=== PATIENT | female | born 1940 | race Caucasian/White ===

== ENCOUNTER 2018-02-22 16:19 | Inpatient (IN) | payer MEDICARE, BC ==
[2018-02-22] MEDS ORDERED: Sodium Chloride 0.9% 1,000 ML IV STA (16:47)
--- NOTE | 2018-02-22 17:05 | RAD ---
HISTORY: Fever COMPARISON: No prior. FINDINGS: LUNGS: No active pulmonary disease. PLEURA: No significant pleural effusion identified, no pneumothorax apparent. CARDIOVASCULAR: Atherosclerotic aortic calcifications. Cardiomediastinal silhouette within normal limits. OSSEOUS STRUCTURES: Degenerative changes. VISUALIZED UPPER ABDOMEN: Right upper quadrant surgical clips. OTHER FINDINGS: None. IMPRESSION: No active disease.
[2018-02-22 17:17] LABS: BASO # 0.1 K/uL (0.0-0.2); BASO % 0.7 % (0.0-2.0); EOS # 0.1 K/uL (0.0-0.7); EOS % 0.4 % (0.0-4.0); HEMOGLOBIN 11.5 g/dL (12.0-16.0); LYMPH # 1.3 K/uL (1.0-4.3); LYMPH % 10.3 % (20.0-40.0); MEAN CELL VOLUME 89.2 fl (81.0-99.0); MEAN CORPUSCULAR HEMOGLOBIN 30.1 pg (27.0-31.0); MEAN CORPUSCULAR HGB CONC 33.8 g/dL (33.0-37.0); MEAN PLATELET VOLUME 6.8 fl (7.2-11.7); MONO # 1.6 K/uL (0.0-0.8); MONO % 12.6 % (0.0-10.0); NEUT # 9.6 K/uL (1.8-7.0); RBC 3.81 Mil/uL (3.80-5.20); RED CELL DISTRIBUTION WIDTH 14.1 % (11.5-14.5)
[2018-02-22 17:19] LABS: VENOUS BLOOD GAS BASE EXCESS 3.9 mmol/L (0.0-2.0); VENOUS BLOOD GAS PCO2 51 mmHg (40-60); VENOUS BLOOD GAS PO2 22 mm/Hg (30-55); VENOUS BLOOD PH 7.38 (7.32-7.43)
[2018-02-22 17:24] LABS: WHITE BLOOD COUNT 12.6 K/uL (4.8-10.8)
--- NOTE | 2018-02-22 17:27 | ED PDOC ---
HPI: Back Time Seen by Provider: 02/22/18 16:41 Chief Complaint (Nursing): Abdominal Pain Chief Complaint (Provider): Flank pain History Per: Patient, Family Additional Complaint(s): Pt reports L flank pain X 2 days, radiates to L abdomen, associated with chills. Denies nausea, vomiting, dysuria, hematuria, cough, CP, SOB. Past Medical History Reviewed: Nursing Documentation, Vital Signs Vital Signs: Last Vital Signs Temp 102.0 F H 02/22/18 16:24 Pulse 98 H 02/22/18 16:24 Resp 18 02/22/18 16:24 BP 167/101 H 02/22/18 16:24 Pulse Ox 99 02/22/18 16:24 - Medical History PMH: HTN Other PMH: Renal cyst - Surgical History Surgical History: Appendectomy, Cholecystectomy - Family History Family History: States: Unknown Family Hx - Social History Current smoker - smoking cessation education provided: No Alcohol: None - Home Medications Home Medications: Ambulatory Orders Medication Instructions Recorded Aspirin [Ecotrin] 81 mg PO DAILY 02/22/18 Cyclobenzaprine [Flexeril] 5 mg PO DAILY 02/22/18 Metformin HCl [Glucophage Xr] 750 mg PO DAILY 02/22/18 SITagliptin [Januvia] 100 mg PO DAILY 02/22/18 Valsartan [Diovan] 80 mg PO DAILY 02/22/18 [id number] CD [Cardizem CD] 180 mg PO DAILY 02/22/18 - Allergies Allergies/Adverse Reactions: Allergies Allergy/AdvReac Type Severity Reaction Status Date / Time ciprofloxacin [From Cipro] Allergy RASH Verified 02/22/18 16:24 Review of Systems Constitutional: Positive for: Chills Cardiovascular: Negative for: Chest Pain, Palpitations Respiratory: Positive for: Cough, Shortness of Breath Gastrointestinal: Positive for: Abdominal Pain. Negative for: Nausea, Vomiting , Diarrhea Genitourinary Female: Negative for: Dysuria, Hematuria, Vaginal Discharge, Vaginal Bleeding Musculoskeletal: Positive for: Back Pain Skin: Negative for: Rash, Lesions Neurological: Negative for: Headache, Dizziness Physical Exam - Reviewed Nursing Documentation Reviewed: Yes Vital Signs Reviewed: Yes - Physical Exam Appears: Positive for: Well, No Acute Distress Skin: Positive for: Normal Color, Warm, Dry Eye Exam: Positive for: Normal appearance, EOMI, PERRL Neck: Positive for: Normal, Painless ROM, Supple Cardiovascular/Chest: Positive for: Regular Rate, Rhythm Respiratory: Positive for: Normal Breath Sounds. Negative for: Rales, Rhonchi, Wheezing Gastrointestinal/Abdominal: Positive for: Bowel Sounds, Soft, Tenderness (LLQ). Negative for: Guarding, Rebound Back: Positive for: Normal Inspection, L CVA Tenderness Neurologic/Psych: Positive for: Alert, Oriented - Laboratory Results Result Diagrams: 02/22/18 17:10 - ECG O2 Sat by Pulse Oximetry: 99 Medical Decision Making Medical Decision Makin y female with fever and flank pain. - labs - EKG - CXR - CT abd/pelvis - IVF - Tylenol Disposition - Disposition
[2018-02-22 17:28] LABS: INR 1.1 (0.9-1.2); PARTIAL THROMBOPLASTIN TIME 32.4 Seconds (25.6-37.1)
[2018-02-22 17:31] LABS: ALBUMIN 3.9 g/dL (3.5-5.0); ALT/SGPT 33 U/L (9-52); AST/SGOT 22 U/L (14-36); BLOOD UREA NITROGEN 19 mg/dl (7-17); CALCIUM 9.6 mg/dL (8.4-10.2); GFR AFRICAN-AMERICAN > 60; GFR NON-AFRICAN AMERICAN > 60
[2018-02-22 18:27] LABS: SQUAMOUS EPITHIAL < 1 /hpf (0-5); URINE BILIRUBIN NEGATIVE (NEGATIVE); URINE BLOOD SMALL (NEGATIVE); URINE CLARITY CLEAR (Clear); URINE COLOR YELLOW (YELLOW); URINE GLUCOSE (UA) NEG (Normal); URINE LEUKOCYTE ESTERASE TRACE Leu/uL (Negative); URINE PROTEIN 30 mg/dL (NEGATIVE); URINE UROBILINOGEN 0.2-1.0 mg/dL (0.2-1.0)
--- NOTE | 2018-02-22 19:21 | ED PDOC ---
- Laboratory Results Result Diagrams: 02/23/18 05:30 02/23/18 05:30 - ECG O2 Sat by Pulse Oximetry: 99 Medical Decision Making Medical Decision Making: Time: 19:00 Patient signed over to me by Dr. Lin pending CT abdomen, reevaluation, and final disposition. Time: 21:54 CT ABDOMEN AND PELVIS: FINDINGS: Limitations: Lack of intravenous contrast. Motion artifact - mild. Lung bases: Mild atelectasis/scarring with volume loss. Mediastinum: Small hiatal hernia. ABDOMEN: Liver: Unremarkable. Gallbladder and bile ducts: Cholecystectomy. Mild prominence of common bile duct. Pancreas: Unremarkable. No ductal dilation. Spleen: No splenomegaly. Adrenals: No mass. Kidneys and ureters: Minimal to mild stranding about kidneys, nonspecific. Mild atrophy of kidneys. Probable 7.5 x 6.2 x 7.1 cm LEFT renal cyst within calcified septations. 1.2 x 1.6 x 1.4 cm lesion within LEFT kidney, indeterminate by CT criteria. No renal calculi. No hydronephrosis. Stomach and bowel: Scattered diverticula within colon. No associated inflammatory stranding. No definite mural thickening. No obstruction. Appendix: No findings to suggest acute appendicitis. PELVIS: Bladder: Collapsed bladder, limiting evaluation. No stones. Reproductive: Hysterectomy. ABDOMEN and PELVIS: Intraperitoneal space: No significant fluid collection. No free air. Bones/joints: Mild degenerative changes of spine. No acute fracture. Soft tissues: Unremarkable. Vasculature: Mild atherosclerotic disease. No aneurysm. Lymph nodes: No pathologically enlarged lymph nodes. IMPRESSION: 1. Perinephric stranding, nonspecific. Correlate with urinalysis to exclude infection. 2. Left kidney lesion, indeterminate. Recommend nonemergent ultrasound or MRI. 3. Diverticulosis without definite CT evidence of diverticulitis. 4. Incidental/non-acute findings are described above. Time: 22:00 Patient will be admitted to the hospital for UTI and sepsis. Will place call to Dr. Lopez of Medical Services. Scribe Attestation: Documented by Rashad Childers, acting as a scribe for Helene Christopher MD. Provider Scribe Attestation: All medical record entries made by the Scribe were at my direction and personally dictated by me. I have reviewed the chart and agree that the record accurately reflects my personal performance of the history, physical exam, medical decision making, and the department course for this patient. I have also personally directed, reviewed, and agree with the discharge instructions and disposition. Disposition Discussed With : Cesar Lopez Doctor Will See Patient In The: Hospital Counseled Patient/Family Regarding: Studies Performed, Diagnosis - Clinical Impression Clinical Impression: UTI (urinary tract infection), Sepsis - POA Present On Arrival: None - Disposition Disposition: Admitted as In-Patient Disposition Time: 22:16 Condition: GOOD
[2018-02-22] MEDS ORDERED: cefTRIAXone (Rocephin) 1 gm Inj ONE (19:27)
--- NOTE | 2018-02-22 21:55 | CT ---
EXAM: CT Abdomen and Pelvis Without Intravenous Contrast CLINICAL HISTORY: 77 years old, female; Pain; Other: Lt fank pain; Prior surgery; Surgery date: 6+ months; Surgery type: Drainage of kidney; Additional info: L flank pain, fever TECHNIQUE: Axial computed tomography images of the abdomen and pelvis without intravenous contrast. All CT scans at this facility use one or more dose reduction techniques, viz.: automated exposure control; ma/kV adjustment per patient size (including targeted exams where dose is matched to indication; i.e. head); or iterative reconstruction technique. Coronal and sagittal reformatted images were created and reviewed. COMPARISON: No relevant prior studies available. FINDINGS: Limitations: Lack of intravenous contrast. Motion artifact - mild. Lung bases: Mild atelectasis/scarring with volume loss. Mediastinum: Small hiatal hernia. ABDOMEN: Liver: Unremarkable. Gallbladder and bile ducts: Cholecystectomy. Mild prominence of common bile duct. Pancreas: Unremarkable. No ductal dilation. Spleen: No splenomegaly. Adrenals: No mass. Kidneys and ureters: Minimal to mild stranding about kidneys, nonspecific. Mild atrophy of kidneys. Probable 7.5 x 6.2 x 7.1 cm LEFT renal cyst within calcified septations. 1.2 x 1.6 x 1.4 cm lesion within LEFT kidney, indeterminate by CT criteria. No renal calculi. No hydronephrosis. Stomach and bowel: Scattered diverticula within colon. No associated inflammatory stranding. No definite mural thickening. No obstruction. Appendix: No findings to suggest acute appendicitis. PELVIS: Bladder: Collapsed bladder, limiting evaluation. No stones. Reproductive: Hysterectomy. ABDOMEN and PELVIS: Intraperitoneal space: No significant fluid collection. No free air. Bones/joints: Mild degenerative changes of spine. No acute fracture. Soft tissues: Unremarkable. Vasculature: Mild atherosclerotic disease. No aneurysm. Lymph nodes: No pathologically enlarged lymph nodes. IMPRESSION: 1. Perinephric stranding, nonspecific. Correlate with urinalysis to exclude infection. 2. Left kidney lesion, indeterminate. Recommend nonemergent ultrasound or MRI. 3. Diverticulosis without definite CT evidence of diverticulitis. 4. Incidental/non-acute findings are described above.
[2018-02-22] MEDS: Dextrose 5%/0.45% NS 1,000 ML IV SCH (23:52)
[2018-02-23 07:15] LABS: HEMOGLOBIN 10.5 g/dL (12.0-16.0); MEAN CORPUSCULAR HEMOGLOBIN 30.3 pg (27.0-31.0); MEAN CORPUSCULAR HGB CONC 33.6 g/dL (33.0-37.0); RBC 3.46 Mil/uL (3.80-5.20); WHITE BLOOD COUNT 8.1 K/uL (4.8-10.8)
[2018-02-23 07:36] LABS: LDL CHOLESTEROL 58 mg/dL (0-129)
[2018-02-23 07:56] LABS: ALB/GLOB RATIO 0.9 (1.0-2.1); ALT/SGPT 59 U/L (9-52); AST/SGOT 65 U/L (14-36); BLOOD UREA NITROGEN 12 mg/dl (7-17); CALCIUM 8.7 mg/dL (8.4-10.2); GFR AFRICAN-AMERICAN > 60; GFR NON-AFRICAN AMERICAN > 60; HDL CHOLESTEROL 31 MG/DL (30-70)
[2018-02-23 08:09] VITALS: RESP 20
[2018-02-23] MEDS: diltiaZEM 180 mg/24 Hours CD Cap PO SCH (08:42)
[2018-02-23] MEDS ORDERED: METFORMIN HCL 750 MG PO SCH (09:00)
--- NOTE | 2018-02-23 10:36 | CARD ---
APPROVED REPORT EKG Measurement Heart [id number] <Conclusion> Normal sinus rhythm Normal ECG
[2018-02-23] MEDS: Dextrose 5%/0.45% NS 1,000 ML IV SCH (13:53)
--- NOTE | 2018-02-23 23:50 | CP.PCM.HP ---
History of Present Illness - History of Present Illness History of Present Illness: This is a 77 y/o female admitted for fever back pain and dysuria. She had low grade fever. and noted elevated WBC, She claism that she started having progressive pain on the left flank for the past few days. She has a hx of complex renal cyst and claims that she had an aspiration of the cyst which revealed benign results. Medical Hx HTn DM 2 complex renal cyst Present on Admission - Present on Admission Any Indicators Present on Admission: No History of DVT/PE: No History of Uncontrolled Diabetes: No Urinary Catheter: No Decubitus Ulcer Present: No Review of Systems - Genitourinary Genitourinary: Flank Pain Past Patient History - Past Social History Smoking Status: Never Smoked - CARDIAC Hx Cardiac Disorders: Yes Hx Hypertension: Yes - NEUROLOGICAL Hx Neurological Disorder: Yes - RENAL Other/Comment: renal cyst - ENDOCRINE/METABOLIC Hx Endocrine Disorders: Yes (DM) Hx Diabetes Mellitus Type 2: Yes - MUSCULOSKELETAL/RHEUMATOLOGICAL Hx Falls: No - PSYCHIATRIC Hx Substance Use: No - SURGICAL HISTORY Hx Appendectomy: Yes Hx Cholecystectomy: Yes Hx Hysterectomy: Yes - ANESTHESIA Hx Anesthesia: Yes Hx Anesthesia Reactions: No Has any member of the family had a problem w/ anesthesia?: No Meds Allergies/Adverse Reactions: Allergies Allergy/AdvReac Type Severity Reaction Status Date / Time ciprofloxacin [From Cipro] Allergy RASH Verified 02/22/18 16:24 Physical Exam - Head Exam Head Exam: NORMAL INSPECTION - Eye Exam Eye Exam: Normal appearance - ENT Exam ENT Exam: Mucous Membranes Moist - Respiratory Exam Respiratory Exam: Clear to Auscultation Bilateral - GI/Abdominal Exam GI & Abdominal Exam: Normal Bowel Sounds - Neurological Exam Neurological exam: CN II-XII Intact - Psychiatric Exam Psychiatric exam: Normal Mood Results - Vital Signs Recent Vital Signs: Last Vital Signs Temp 98.5 F 02/23/18 16:11 Pulse 74 02/23/18 16:11 Resp 20 02/23/18 16:11 BP 122/64 02/23/18 16:11 Pulse Ox 95 02/23/18 16:11 - Labs Result Diagrams: 02/23/18 05:30 02/23/18 05:30 Labs: Laboratory Results - last 24 hr 02/23/18 02/23/18 02/23/18 05:09 05:30 05:30 WBC 8.1 RBC 3.46 L Hgb 10.5 L Hct 31.1 L MCV 90.0 MCH 30.3 MCHC 33.6 RDW 14.0 Plt Count 304 Sodium 147 Potassium 3.8 Chloride 109 H Carbon Dioxide 23 Anion Gap 19 BUN 12 Creatinine 0.8 Est GFR ( Amer) > 60 Est GFR (Non-Af Amer) > 60 POC Glucose (mg/dL) 100 Random Glucose 113 H Calcium 8.7 Total Bilirubin 0.6 AST 65 H D ALT 59 H D Alkaline Phosphatase 98 Total Protein 6.5 Albumin 3.0 L D Globulin 3.4 Albumin/Globulin Ratio 0.9 L Triglycerides 98 Cholesterol 133 LDL Cholesterol Direct 58 HDL Cholesterol 31 02/23/18 02/23/18 02/23/18 11:16 15:48 22:02 WBC RBC Hgb Hct MCV MCH MCHC RDW Plt Count Sodium Potassium Chloride Carbon Dioxide Anion Gap BUN Creatinine Est GFR ( Amer) Est GFR (Non-Af Amer) POC Glucose (mg/dL) 107 102 110 Random Glucose Calcium Total Bilirubin AST ALT Alkaline Phosphatase Total Protein Albumin Globulin Albumin/Globulin Ratio Triglycerides Cholesterol LDL Cholesterol Direct HDL Cholesterol Assessment & Plan (1) Abdominal pain Status: Acute (2) Renal cyst Status: Acute (3) Hypertension Status: Acute (4) Diabetes mellitus type 2 in nonobese Status: Acute (5) Renal mass of unknown nature Status: Acute - Assessment and Plan (Free Text) Plan: Iv antibiotics pain meds reviewed CT scan results cont meds
[2018-02-24 08:28] VITALS: BP 142/83; PULSE 62; TEMP 98.1
[2018-02-24] MEDS: diltiaZEM 180 mg/24 Hours CD Cap PO SCH (08:38)
--- NOTE | 2018-02-24 10:53 | CP.PCM.DIS ---
Provider - Provider Date of Admission: 02/22/18 22:16 Attending physician: Cesar Lopez MD Time Spent in preparation of Discharge (in minutes): 30 Diagnosis - Discharge Diagnosis (1) Abdominal pain Status: Acute (2) Renal cyst Status: Acute (3) Hypertension Status: Acute (4) Diabetes mellitus type 2 in nonobese Status: Acute (5) Renal mass of unknown nature Status: Acute Hospital Course - Lab Results Lab Results: Micro Results 02/22/18 17:39 Urine Urine Culture - Final <10,000 CFU/ML. MULTIPLE SPECIES. PROBABLE CONTAMINATION. 02/22/18 17:00 Blood Blood Culture - Preliminary NO GROWTH AFTER 24 HOURS Most Recent Lab Values WBC 8.1 K/uL (4.8-10.8) 02/23/18 05:30 RBC 3.46 Mil/uL (3.80-5.20) L 02/23/18 05:30 Hgb 10.5 g/dL (12.0-16.0) L 02/23/18 05:30 Hct 31.1 % (34.0-47.0) L 02/23/18 05:30 MCV 90.0 fl (81.0-99.0) 02/23/18 05:30 MCH 30.3 pg (27.0-31.0) 02/23/18 05:30 MCHC 33.6 g/dL (33.0-37.0) 02/23/18 05:30 RDW 14.0 % (11.5-14.5) 02/23/18 05:30 Plt Count 304 K/uL (130-400) 02/23/18 05:30 MPV 6.8 fl (7.2-11.7) L 02/22/18 17:10 Neut % (Auto) 76.0 % (50.0-75.0) H 02/22/18 17:10 Lymph % (Auto) 10.3 % (20.0-40.0) L 02/22/18 17:10 Hayes % (Auto) 12.6 % (0.0-10.0) H 02/22/18 17:10 Eos % (Auto) 0.4 % (0.0-4.0) 02/22/18 17:10 Baso % (Auto) 0.7 % (0.0-2.0) 02/22/18 17:10 Neut # (Auto) 9.6 K/uL (1.8-7.0) H 02/22/18 17:10 Lymph # (Auto) 1.3 K/uL (1.0-4.3) 02/22/18 17:10 Hayes # (Auto) 1.6 K/uL (0.0-0.8) H 02/22/18 17:10 Eos # (Auto) 0.1 K/uL (0.0-0.7) 02/22/18 17:10 Baso # (Auto) 0.1 K/uL (0.0-0.2) 02/22/18 17:10 PT 12.0 Seconds (9.8-13.1) 02/22/18 17:10 INR 1.1 (0.9-1.2) 02/22/18 17:10 APTT 32.4 Seconds (25.6-37.1) 02/22/18 17:10 pO2 22 mm/Hg (30-55) L 02/22/18 17:16 VBG pH 7.38 (7.32-7.43) 02/22/18 17:16 VBG pCO2 51 mmHg (40-60) 02/22/18 17:16 VBG HCO3 26.3 mmol/L 02/22/18 17:16 VBG Total CO2 31.8 mmol/L (22-28) H 02/22/18 17:16 VBG O2 Sat (Calc) 23.9 % (40-65) L 02/22/18 17:16 VBG Base Excess 3.9 mmol/L (0.0-2.0) H 02/22/18 17:16 VBG Potassium 3.8 mmol/L (3.6-5.2) 02/22/18 17:16 Sodium 139.0 mmol/L (132-148) 02/22/18 17:16 Chloride 104.0 mmol/L (98-107) 02/22/18 17:16 Glucose 109 mg/dL (65-105) H 02/22/18 17:16 Lactate 0.9 mmol/L (0.7-2.1) 02/22/18 17:16 FiO2 21.0 % 02/22/18 17:16 Sodium 147 mmol/l (132-148) 02/23/18 05:30 Potassium 3.8 MMOL/L (3.6-5.0) 02/23/18 05:30 Chloride 109 mmol/L (98-107) H 02/23/18 05:30 Carbon Dioxide 23 mmol/L (22-30) 02/23/18 05:30 Anion Gap 19 (10-20) 02/23/18 05:30 BUN 12 mg/dl (7-17) 02/23/18 05:30 Creatinine 0.8 mg/dl (0.7-1.2) 02/23/18 05:30 Est GFR ( Amer) > 60 02/23/18 05:30 Est GFR (Non-Af Amer) > 60 02/23/18 05:30 POC Glucose (mg/dL) 104 mg/dL (65-110) 02/24/18 05:16 Random Glucose 113 mg/dL (65-105) H 02/23/18 05:30 Hemoglobin A1c 6.2 % (4.2-6.5) 02/23/18 05:30 Calcium 8.7 mg/dL (8.4-10.2) 02/23/18 05:30 Total Bilirubin 0.6 mg/dl (0.2-1.3) 02/23/18 05:30 AST 65 U/L (14-36) H D 02/23/18 05:30 ALT 59 U/L (9-52) H D 02/23/18 05:30 Alkaline Phosphatase 98 U/L (38-126) 02/23/18 05:30 Total Protein 6.5 G/DL (6.3-8.2) 02/23/18 05:30 Albumin 3.0 g/dL (3.5-5.0) L D 02/23/18 05:30 Globulin 3.4 gm/dL (2.2-3.9) 02/23/18 05:30 Albumin/Globulin Ratio 0.9 (1.0-2.1) L 02/23/18 05:30 Triglycerides 98 mg/DL (0-149) 02/23/18 05:30 Cholesterol 133 mg/dL (0-199) 02/23/18 05:30 LDL Cholesterol Direct 58 mg/dL (0-129) 02/23/18 05:30 HDL Cholesterol 31 MG/DL (30-70) 02/23/18 05:30 Venous Blood Potassium 3.8 mmol/L (3.6-5.2) 02/22/18 17:16 Urine Color Yellow (YELLOW) 02/22/18 17:39 Urine Clarity Clear (Clear) 02/22/18 17:39 Urine pH 6.0 (5.0-8.0) 02/22/18 17:39 Ur Specific [place] 1.010 (1.003-1.030) 02/22/18 17:39 Urine Protein 30 mg/dL (NEGATIVE) 02/22/18 17:39 Urine Glucose (UA) Neg mg/dL (Normal) 02/22/18 17:39 Urine Ketones Negative mg/dL (NEGATIVE) 02/22/18 17:39 Urine Blood Small (NEGATIVE) 02/22/18 17:39 Urine Nitrate Negative (NEGATIVE) 02/22/18 17:39 Urine Bilirubin Negative (NEGATIVE) 02/22/18 17:39 Urine Urobilinogen 0.2-1.0 mg/dL (0.2-1.0) 02/22/18 17:39 Ur Leukocyte Esterase Trace [place]/uL (Negative) 02/22/18 17:39 Urine RBC (Auto) 2 /hpf (0-3) 02/22/18 17:39 Urine Microscopic WBC 8 /hpf (0-5) H 02/22/18 17:39 Ur Squamous Epith Cells < 1 /hpf (0-5) 02/22/18 17:39 - Hospital Course Hospital Course: This is a 77 y/o female admitted for left flank pain and UT> She presented with fever and elevated WBC, She was started on Rocephin IV and responded well. urine c and S was negative, CT scan showed a complex cyst on the left kidney and a renal mass of unknown etiology. She did very well and was discharged in stable condition and advised follow up with her Urologist re renal mass and cyst. She was discharged on bactrim DS BID x 7 days and Ibuprofen She was advised to continue all her home meds. Discharge Exam - Head Exam Head Exam: NORMAL INSPECTION - Eye Exam Eye Exam: Normal appearance - Respiratory Exam Respiratory Exam: NORMAL BREATHING PATTERN - Cardiovascular Exam Cardiovascular Exam: REGULAR RHYTHM - GI/Abdominal Exam GI & Abdominal Exam: Normal Bowel Sounds - Neurological Exam Neurological exam: CN II-XII Intact, Oriented x3 Discharge Plan - Follow Up Plan Condition: GOOD Disposition: HOME/ ROUTINE Additional Instructions: advised follow up with Urologist Copy of CT scan of the abd was given to patient.
[2018-02-24 12:24] VITALS: O2SAT 99
--- NOTE | 2018-02-24 15:26 | PQF GENQUE ---
Dr. Lopez, ER MD documented the following information with no mention of this diagnosis in your documentation. Please indicate in your next progress note and/or discharge summary your agreement with admissions consultant or provide clarification that this diagnosis is not a current condition. Diagnosis: Sepsis Location: ER record Please clarify if this was an active condition(s) that resolved prior to discharge or this condition(s) was ruled out. Temp.: 102.0->98.6->98.6 Pulse;98->71->71 WBC:12.6-.8.1 left shift ER:Pt reports L flank pain X 2 days, radiates to L abdomen, associated with chills Impression: UTI, Sepsis H and P: admitted for fever back pain and dysuria. She had low grade fever. and noted elevated WBC, She claims that she started having progressive pain on the left flank for the past few days. She has a hx of complex renal cyst and claims that she had an aspiration of the cyst which revealed benign results Assessment Plan : (1) Abdominal pain Status: Acute (2) Renal cyst Status: Acute (3) Hypertension Status: Acute (4) Diabetes mellitus type 2 in nonobese Status: Acute (5) Renal mass of unknown nature Status: Acute D/C Summary: admitted for left flank pain and UT> She presented with fever and elevated WBC, She was started on Rocephin IV and responded well. urine c and S was negative, CT scan showed a complex cyst on the left kidney and a renal mass of unknown etiology. advised follow up with her Urologist re renal mass and cyst. Please clarify if this was an active condition(s) that resolved prior to discharge or this condition(s) was ruled out. This form is a permanent part of the medical record Clarification of your documentation is requested to better reflect the severity of illness and intensity of treatment of your patient. Indicators present [] Specify: [] [] Specify: [] [] Specify: [] [] Specify: [] Location in the medical record that reflects the above clinical findings: [] Treatment Provided: [] PHYSICIAN'S RESPONSE Based on your medical judgment of the clinical indicators outlined above please clarify the following: [] Practitioner response [] If unable to determine, please check the box, sign and date. Present On Admission (POA) Indicator: [] Present at the time of admission [] Not present at the time of admission [] Clinically Undetermined In responding to this query, please exercise your independent professional judgment. The fact that a question is asked does not imply that any particular answer is desired or expected. Thank you for your clarification on this documentation. If you have any questions please call. * Thank you, Felicia Easton RN ext. #[phone] MTDD
== END 2018-02-24 12:20 | disposition home or self-care (01) | DRG 864 ==
LOC: H.ER 16:19 → H.ERHOLD 22:16 → H.MEDSURG1 23:13
PROVIDERS: ADMIT Family Medicine; ATTEND Family Medicine
DX: R50.9 Fever, unspecified (principal); D72.829 Elevated white blood cell count, unspecified; N28.1 Cyst of kidney, acquired; N28.89 Other specified disorders of kidney and ureter; I10 Essential (primary) hypertension; E11.9 Type 2 diabetes mellitus without complications; Z88.3 Allergy status to other anti-infective agents

== ENCOUNTER 2019-02-24 20:02 | Inpatient (IN) | payer BC, MEDICARE ==
[2019-02-24] MEDS ORDERED: Sodium Chloride 0.9% 1,000 ML IV STA ×2 (21:13→21:24)
[2019-02-24 21:48] LABS: BASO % 0.7 % (0.0-2.0); EOS # 0.2 K/uL (0.0-0.7); HEMOGLOBIN 11.9 g/dL (12.0-16.0); LYMPH # 2.1 K/uL (1.0-4.3); LYMPH % 32.3 % (20.0-40.0); MEAN CELL VOLUME 90.7 fl (81.0-99.0); MEAN CORPUSCULAR HEMOGLOBIN 30.7 pg (27.0-31.0); MEAN CORPUSCULAR HGB CONC 33.9 g/dL (33.0-37.0); MONO # 0.8 K/uL (0.0-0.8); MONO % 12.3 % (0.0-10.0); NEUT # 3.4 K/uL (1.8-7.0); NEUT % 51.7 % (50.0-75.0); NRBC % 0.1 % (0.0-0.0); RBC 3.88 Mil/uL (3.80-5.20); RED CELL DISTRIBUTION WIDTH 13.8 % (11.5-14.5); WHITE BLOOD COUNT 6.7 K/uL (4.8-10.8)
[2019-02-24 21:56] LABS: INR 0.9; PROTHROMBIN TIME 10.4 Seconds (9.8-13.1)
[2019-02-24 21:58] LABS: PARTIAL THROMBOPLASTIN TIME 36.2 Seconds (25.6-37.1)
[2019-02-24 21:59] LABS: ALB/GLOB RATIO 1.3 (1.0-2.1); ALBUMIN 4.2 g/dL (3.5-5.0); ALT/SGPT 23 U/L (9-52); AST/SGOT 23 U/L (14-36); BLOOD UREA NITROGEN 23 mg/dl (7-17); CALCIUM 9.3 mg/dL (8.4-10.2); GFR NON-AFRICAN AMERICAN 54
[2019-02-24 22:24] LABS: URINE BACTERIA FEW (<OCC); URINE BILIRUBIN NEGATIVE (NEGATIVE); URINE BLOOD LARGE (NEGATIVE); URINE CLARITY SLIGHTY-CLOUDY (Clear); URINE COLOR RED (YELLOW); URINE GLUCOSE (UA) NEG (NEGATIVE); URINE LEUKOCYTE ESTERASE TRACE Leu/uL (Negative); URINE PROTEIN 100 mg/dL (NEGATIVE); URINE UROBILINOGEN 0.2-1.0 mg/dL (0.2-1.0)
[2019-02-24] MEDS ORDERED: Iohexol 300 100 ML IJ ONE (22:55)
--- NOTE | 2019-02-24 22:58 | ED PDOC ---
HPI: Abdomen Time Seen by Provider: 02/24/19 21:12 Chief Complaint (Nursing): GI Problem Chief Complaint (Provider): GI Problem History Per: Patient History/Exam Limitations: no limitations Onset/Duration Of Symptoms: Days (x 2) Location Of Pain/Discomfort: Diffuse Quality Of Discomfort: "Pain" Associated Symptoms: Other (blood in stool) Additional Complaint(s): 78 year old female with a history of DM, HTN, dyslipidemia, and diverticular disease presents to the ED for evaluation of rectal bleeding for 2 days. Patient reports a mild amount of blood from rectum, both with bowel movements and otherwise. Today, patient states bleeding became heavier with clots and developed mild abdominal pain which is worse on the left side. Denies dizziness, fever, nausea and vomiting. PMD: Dr. Castro Abnormal Vaginal Bleeding: No Past Medical History Reviewed: Historical Data, Nursing Documentation, Vital Signs Vital Signs: Last Vital Signs Temp 98.5 F 02/24/19 20:43 Pulse 72 02/24/19 20:43 Resp 18 02/24/19 20:43 BP 169/95 H 02/24/19 20:43 Pulse Ox 98 02/24/19 20:43 - Medical History PMH: Diabetes, Diverticulitis, HTN, Hyperlipidemia - Surgical History Surgical History: Appendectomy, Cholecystectomy, Other surgeries: hysterectomy - Family History Family History: States: Unknown Family Hx - Home Medications Home Medications: Ambulatory Orders Medication Instructions Recorded Aspirin [Ecotrin] 81 mg PO DAILY 02/22/18 Metformin HCl [Glucophage Xr] 750 mg PO DAILY 02/22/18 SITagliptin [Januvia] 100 mg PO DAILY 02/22/18 [id number] CD [Cardizem CD] 180 mg PO DAILY 02/22/18 Losartan [Cozaar] 25 mg PO DAILY 02/24/19 Sertraline [Zoloft] 50 mg PO DAILY 02/24/19 - Allergies Allergies/Adverse Reactions: Allergies Allergy/AdvReac Type Severity Reaction Status Date / Time ciprofloxacin [From Cipro] Allergy RASH Verified 02/22/18 16:24 Review of Systems ROS Statement: Except As Marked, All Systems Reviewed And Found Negative Constitutional: Negative for: Fever, Chills Gastrointestinal: Positive for: Abdominal Pain (mild abdominal pain, worse of the left side), Hematochezia (red blood per rectum). Negative for: Nausea, Vomiting Neurological: Negative for: Dizziness Physical Exam - Reviewed Nursing Documentation Reviewed: Yes Vital Signs Reviewed: Yes - Physical Exam Appears: Positive for: Non-toxic, No Acute Distress Head Exam: Positive for: ATRAUMATIC, NORMAL INSPECTION, NORMOCEPHALIC Skin: Positive for: Normal Color, Warm, Dry Eye Exam: Positive for: EOMI, Normal appearance, PERRL Neck: Positive for: Normal, Painless ROM, Supple Cardiovascular/Chest: Positive for: Regular Rate, Rhythm. Negative for: Murmur Respiratory: Positive for: Normal Breath Sounds. Negative for: Wheezing, Respiratory Distress Gastrointestinal/Abdominal: Positive for: Tenderness (left lower quadrant). Negative for: Mass, Guarding, Rebound Back: Positive for: Normal Inspection. Negative for: L CVA Tenderness, R CVA Tenderness, Vertebral Tenderness Extremity: Positive for: Normal ROM (x 4). Negative for: Deformity, Swelling Neurological/Psych: Positive for: Awake, Alert, Normal Tone, Oriented (x 3). Negative for: Motor/Sensory Deficits - Laboratory Results Result Diagrams: 02/24/19 21:30 02/24/19 21:30 Lab Results: PT 10.4 Seconds (9.8-13.1) 02/24/19 21:30 INR 0.9 02/24/19 21:30 APTT 36.2 Seconds (25.6-37.1) 02/24/19 21:30 Total Bilirubin 0.3 mg/dl (0.2-1.3) 02/24/19 21:30 AST 23 U/L (14-36) 02/24/19 21:30 ALT 23 U/L (9-52) 02/24/19 21:30 Alkaline Phosphatase 70 U/L (38-126) 02/24/19 21:30 Total Protein 7.4 G/DL (6.3-8.2) 02/24/19 21:30 Albumin 4.2 g/dL (3.5-5.0) 02/24/19 21:30 Globulin 3.2 gm/dL (2.2-3.9) 02/24/19 21:30 Albumin/Globulin Ratio 1.3 (1.0-2.1) 02/24/19 21:30 Urine Color Red (YELLOW) 02/24/19 22:10 Urine Clarity Slighty-cloudy (Clear) 02/24/19 22:10 Urine pH 6.0 (5.0-8.0) 02/24/19 22:10 Ur Specific [place] 1.009 (1.003-1.030) 02/24/19 22:10 Urine Protein 100 mg/dL (NEGATIVE) 02/24/19 22:10 Urine Glucose (UA) Neg mg/dL (NEGATIVE) 02/24/19 22:10 Urine Ketones Negative mg/dL (NEGATIVE) 02/24/19 22:10 Urine Blood Large (NEGATIVE) 02/24/19 22:10 Urine Nitrate Negative (NEGATIVE) 02/24/19 22:10 Urine Bilirubin Negative (NEGATIVE) 02/24/19 22:10 Urine Urobilinogen 0.2-1.0 mg/dL (0.2-1.0) 02/24/19 22:10 Ur Leukocyte Esterase Trace [place]/uL (Negative) 02/24/19 22:10 Urine RBC (Auto) 52 /hpf (0-3) H 02/24/19 22:10 Urine Microscopic WBC 8 /hpf (0-5) H 02/24/19 22:10 Urine Bacteria Few (<OCC) H 02/24/19 22:10 - ECG O2 Sat by Pulse Oximetry: 98 (RA) Pulse Ox Interpretation: Normal Medical Decision Making Medical Decision Makin:12 Impression: 78 year old female with bright red blood per rectum and abdominal pain in setting of known diverticular disease Initial Plan: --Blood type --CT Abd & pelvis --Lactic acid --Blood cx --CBC --CMP --Urine dip --Blood cx --PTT --PT --NS IV 1,000 mls --Protonix 80 mg IV --Occult blood, stool --UA 00:04 CT FINDINGS: LUNG BASES: The lung bases appear clear. No pleural effusions are seen. LIVER: Unremarkable. GALLBLADDER AND BILE DUCTS: Status post cholecystectomy. No biliary ductal dilatation is evident. PANCREAS: Unremarkable. SPLEEN: Unremarkable. ADRENAL GLANDS: Unremarkable. KIDNEYS, URETERS, AND BLADDER: Both kidneys are normal in size and position a 7.0 x 7.0 cm cyst is again noted arising from the superior left renal pole.. There is no hydronephrosis or hydroureter. No urinary calculi are seen. The urinary bladder appeared normal in size and configuration. STOMACH AND BOWEL: Unremarkable appearance of the stomach. No evidence of bowel obstruction. There is mucosal wall thickening seen in the ileal small intestinal track which contains fluid in its lumen thought compatible with ileitis. Infectious or inflammatory etiologies are thought most likely. No evidence suggesting colitis. Extensive diverticulosis coli is again noted within the left hemicolon without evidence of acute diverticulitis. APPENDIX: No evidence of acute appendicitis on CT examination. PERITONEUM: No free fluid. No free air. LYMPH NODES: No lymphadenopathy is evident. REPRODUCTIVE: Status post hysterectomy. VASCULATURE: No evidence of abdominal aortic aneurysm. Minor atherosclerotic vascular plaquing is noted. BONES: No aggressive appearing osseous lesion. No acute osseous pathology evident. IMPRESSION: 1. Evidence of ileitis. 2. Extensive diverticulosis coli of the left hemicolon. No associated acute diverticulitis. 3. Status post cholecystectomy. 4. Status post hysterectomy. 00:10 Labs reviewed and reveal no clinically significant abnormalities with the exception of mild anemia. Patient will be admitted for an acute GI bleed. Referred to Dr. Lopez's service. Discussed patient with Kenji Lew nurse practitioner. Scribe Attestation: Documented by Velia Faith, acting as a scribe Taylor Merino MD Provider Scribe Attestation: All medical record entries made by the Scribe were at my direction and personally dictated by me. I have reviewed the chart and agree that the record accurately reflects my personal performance of the history, physical exam, medical decision making, and the department course for this patient. I have also personally directed, reviewed, and agree with the discharge instructions and disposition Disposition - Clinical Impression Clinical Impression: Gastrointestinal hemorrhage - Patient ED Disposition Is Patient to be Admitted: Yes - Disposition Disposition Time: 00:10 Condition: FAIR - Pt Status Changed To: Hospital Disposition Of: Inpatient - Admit Certification Admit to Inpatient:: After my assessment, the patient will require hospitalization for at least two midnights. This is because of the severity of symptoms shown, intensity of services needed, and/or the medical risk in this patient being treated as an outpatient.
--- NOTE | 2019-02-25 07:36 | RAD ---
Date of service: 02/25/2019 HISTORY: admit COMPARISON: 02/22/2018 TECHNIQUE: 1 view obtained. FINDINGS: LUNGS: No active pulmonary disease. PLEURA: No significant pleural effusion identified, no pneumothorax apparent. CARDIOVASCULAR: There is presence of aortic atherosclerotic calcification on x-ray. Normal cardiac size. No pulmonary vascular congestion. OSSEOUS STRUCTURES: Thoracic spondylosis. Bilateral shoulder arthrosis VISUALIZED UPPER ABDOMEN: Cholecystectomy clips inferred right upper quadrant OTHER FINDINGS: None. IMPRESSION: No active disease. No interval pathology noted.
--- NOTE | 2019-02-25 11:19 | CT ---
Date of service: 02/24/2019 PROCEDURE: CT Abdomen and Pelvis with contrast HISTORY: LLQ pain/BRBPR COMPARISON: 02/22/2018. TECHNIQUE: Intravenous contrast dose: 90 cc Omnipaque 300. Radiation dose: Total exam DLP = 390.85 mGy-cm. This CT exam was performed using one or more of the following dose reduction techniques: Automated exposure control, adjustment of the mA and/or kV according to patient size, and/or use of iterative reconstruction technique. FINDINGS: LOWER THORAX: Unremarkable. LIVER: Hepatic steatosis. No focal masses. No intrahepatic bile duct dilatation or perihepatic ascites. Simple cyst right hepatic lobe finding identified previously without interval change. GALLBLADDER AND BILE DUCTS: Status post cholecystectomy. No abnormality is seen in the gallbladder fossa. PANCREAS: Unremarkable. No gross lesion or ductal dilatation. SPLEEN: Unremarkable. ADRENALS: Unremarkable. No mass. KIDNEYS AND URETERS: Atrophic kidneys bilaterally, cortical thinning noted. Multiple renal cysts the largest 6.8 cm upper pole left kidney. VASCULATURE: Atherosclerotic calcification and mural plaque present. Findings are seen throughout the aorta which is non aneurysmal. BOWEL: Diverticulosis without an acute inflammatory component or other associated pathologic process. APPENDIX: No abnormalities to suggest acute appendicitis. No right lower quadrant inflammatory processes identified. PERITONEUM: Unremarkable. No free fluid. No free air. LYMPH NODES: Unremarkable. No enlarged lymph nodes. BLADDER: Unremarkable. REPRODUCTIVE: Prior hysterectomy. BONES: No acute fracture. OTHER FINDINGS: None. IMPRESSION: No acute or significant findings related to/ accounting for the clinical presentation. Additional benign and/or incidental findings described above. No significant interval change compared to the prior examination(s). Concordant findings (preliminary report) provided by [employer].
[2019-02-25 11:27] LABS: HEMOGLOBIN 11.6 g/dL (12.0-16.0); MEAN CELL VOLUME 90.5 fl (81.0-99.0); MEAN CORPUSCULAR HEMOGLOBIN 30.3 pg (27.0-31.0); MEAN CORPUSCULAR HGB CONC 33.5 g/dL (33.0-37.0); RBC 3.81 Mil/uL (3.80-5.20); RED CELL DISTRIBUTION WIDTH 13.6 % (11.5-14.5); WHITE BLOOD COUNT 5.7 K/uL (4.8-10.8)
[2019-02-25 12:10] LABS: BLOOD UREA NITROGEN 16 mg/dl (7-17); CALCIUM 8.7 mg/dL (8.4-10.2); GFR NON-AFRICAN AMERICAN > 60
[2019-02-25 12:19] LABS: IRON 53 ug/dL (37-170)
[2019-02-25 12:28] LABS: % IRON SATURATION 19 % (20-55); TOTAL IRON BINDING CAPACITY 277 ug/dL (250-450)
[2019-02-25 12:55] LABS: FERRITIN 16.8 ng/Ml (11.1-264.0)
--- NOTE | 2019-02-25 16:14 | CP.PCM.CON ---
History of Present Illness - History of Present Illness History of Present Illness: 78 yo female on daily ASA therapy admitted after experiencing brisk rectal bleeding at home. No bleeding since admission. No recent colonoscopy. Past Patient History - Past Medical History & Family History Past Medical History?: Yes - Past Social History Smoking Status: Never Smoked - CARDIAC Hx Hypertension: Yes - NEUROLOGICAL Hx Neurological Disorder: Yes - RENAL Other/Comment: renal cyst - ENDOCRINE/METABOLIC Hx Endocrine Disorders: Yes (DM) - MUSCULOSKELETAL/RHEUMATOLOGICAL Hx Falls: Yes - GASTROINTESTINAL Hx Diverticulitis: Yes - PSYCHIATRIC Hx Substance Use: No - SURGICAL HISTORY Hx Appendectomy: Yes Hx Cholecystectomy: Yes - ANESTHESIA Hx Anesthesia: Yes Hx Anesthesia Reactions: No Meds Allergies/Adverse Reactions: Allergies Allergy/AdvReac Type Severity Reaction Status Date / Time ciprofloxacin [From Cipro] Allergy RASH Verified 02/22/18 16:24 - Medications Medications: Current Medications Diltiazem HCl (Cardizem Cd) 180 mg PO DAILY [facility] Losartan Potassium (Cozaar) 25 mg PO DAILY [facility] Pantoprazole Sodium (Protonix Inj) 40 mg IVP Q12 [facility] Last Admin: 02/25/19 12:33 Dose: 40 mg Sertraline HCl (Zoloft) 50 mg PO DAILY [facility] Sitagliptin Phosphate (Januvia) 100 mg PO DAILY [place] Sodium Phosphate (Fleet Enema) 135 ml [place] ONCE ONE Stop: 02/25/19 18:01 Sodium Phosphate (Fleet Enema) 135 ml [place] ONCE ONE Stop: 02/26/19 06:01 Physical Exam - Constitutional Appears: No Acute Distress - Head Exam Head Exam: ATRAUMATIC - Eye Exam Eye Exam: Normal appearance - ENT Exam ENT Exam: Normal Exam - Neck Exam Neck exam: Positive for: Normal Inspection - Respiratory Exam Respiratory Exam: Clear to Auscultation Bilateral - Cardiovascular Exam Cardiovascular Exam: REGULAR RHYTHM - GI/Abdominal Exam GI & Abdominal Exam: Normal Bowel Sounds, Soft, Tenderness Additional comments: tender LLQ Results - Vital Signs Recent Vital Signs: Last Vital Signs Temp 98.3 F 02/25/19 11:57 Pulse 66 02/25/19 11:57 Resp 20 02/25/19 11:57 BP 145/77 02/25/19 11:57 Pulse Ox 96 02/25/19 11:57 - Labs Result Diagrams: 02/25/19 11:00 02/25/19 11:00 Labs: Laboratory Results - last 24 hr 02/24/19 02/24/19 02/24/19 21:30 21:30 21:30 WBC 6.7 RBC 3.88 Hgb 11.9 L Hct 35.2 MCV 90.7 MCH 30.7 MCHC 33.9 RDW 13.8 Plt Count 314 MPV 7.0 L Neut % (Auto) 51.7 Lymph % (Auto) 32.3 [place] % (Auto) 12.3 H Eos % (Auto) 3.0 Baso % (Auto) 0.7 Neut # (Auto) 3.4 Lymph # (Auto) 2.1 [place] # (Auto) 0.8 Eos # (Auto) 0.2 Baso # (Auto) 0.0 PT 10.4 INR 0.9 APTT 36.2 Sodium 140 Potassium 3.9 Chloride 104 Carbon Dioxide 25 Anion Gap 15 BUN 23 H Creatinine 1.0 Est GFR ( Amer) > 60 Est GFR (Non-Af Amer) 54 POC Glucose (mg/dL) Random Glucose 95 Lactic Acid Calcium 9.3 Iron TIBC % Saturation Ferritin Total Bilirubin 0.3 AST 23 ALT 23 Alkaline Phosphatase 70 Total Protein 7.4 Albumin 4.2 Globulin 3.2 Albumin/Globulin Ratio 1.3 Vitamin B12 Urine Color Urine Clarity Urine pH Ur Specific [place] Urine Protein Urine Glucose (UA) Urine Ketones Urine Blood Urine Nitrate Urine Bilirubin Urine Urobilinogen Ur Leukocyte Esterase Urine RBC (Auto) Urine Microscopic WBC Urine Bacteria Blood Type Antibody Screen BBK History Checked 02/24/19 02/24/19 02/24/19 21:30 21:45 22:10 WBC RBC Hgb Hct MCV MCH MCHC RDW Plt Count MPV Neut % (Auto) Lymph % (Auto) [place] % (Auto) Eos % (Auto) Baso % (Auto) Neut # (Auto) Lymph # (Auto) [place] # (Auto) Eos # (Auto) Baso # (Auto) PT INR APTT Sodium Potassium Chloride Carbon Dioxide Anion Gap BUN Creatinine Est GFR ( Amer) Est GFR (Non-Af Amer) POC Glucose (mg/dL) Random Glucose Lactic Acid 0.7 Calcium Iron TIBC % Saturation Ferritin Total Bilirubin AST ALT Alkaline Phosphatase Total Protein Albumin Globulin Albumin/Globulin Ratio Vitamin B12 Urine Color Red Urine Clarity Slighty-cloudy Urine pH 6.0 Ur Specific [place] 1.009 Urine Protein 100 Urine Glucose (UA) Neg Urine Ketones Negative Urine Blood Large Urine Nitrate Negative Urine Bilirubin Negative Urine Urobilinogen 0.2-1.0 Ur Leukocyte Esterase Trace Urine RBC (Auto) 52 H Urine Microscopic WBC 8 H Urine Bacteria Few H Blood Type O NEGATIVE Antibody Screen Negative BBK History Checked Patient has bt 02/25/19 02/25/19 02/25/19 05:36 10:57 11:00 WBC RBC Hgb Hct MCV MCH MCHC RDW Plt Count MPV Neut % (Auto) Lymph % (Auto) [place] % (Auto) Eos % (Auto) Baso % (Auto) Neut # (Auto) Lymph # (Auto) [place] # (Auto) Eos # (Auto) Baso # (Auto) PT INR APTT Sodium Potassium Chloride Carbon Dioxide Anion Gap BUN Creatinine Est GFR ( Amer) Est GFR (Non-Af Amer) POC Glucose (mg/dL) 101 100 Random Glucose Lactic Acid Calcium Iron 53 TIBC 277 % Saturation 19 L Ferritin Total Bilirubin AST ALT Alkaline Phosphatase Total Protein Albumin Globulin Albumin/Globulin Ratio Vitamin B12 Urine Color Urine Clarity Urine pH Ur Specific [place] Urine Protein Urine Glucose (UA) Urine Ketones Urine Blood Urine Nitrate Urine Bilirubin Urine Urobilinogen Ur Leukocyte Esterase Urine RBC (Auto) Urine Microscopic WBC Urine Bacteria Blood Type Antibody Screen BBK History Checked 02/25/19 02/25/19 02/25/19 11:00 11:00 11:00 WBC 5.7 RBC 3.81 Hgb 11.6 L Hct 34.5 MCV 90.5 MCH 30.3 MCHC 33.5 RDW 13.6 Plt Count 288 MPV Neut % (Auto) Lymph % (Auto) [place] % (Auto) Eos % (Auto) Baso % (Auto) Neut # (Auto) Lymph # (Auto) [place] # (Auto) Eos # (Auto) Baso # (Auto) PT INR APTT Sodium 139 Potassium 3.9 Chloride 107 Carbon Dioxide 26 Anion Gap 10 BUN 16 Creatinine 0.9 Est GFR ( Amer) > 60 Est GFR (Non-Af Amer) > 60 POC Glucose (mg/dL) Random Glucose 91 Lactic Acid Calcium 8.7 Iron TIBC % Saturation Ferritin 16.8 Total Bilirubin AST ALT Alkaline Phosphatase Total Protein Albumin Globulin Albumin/Globulin Ratio Vitamin B12 720 Urine Color Urine Clarity Urine pH Ur Specific [place] Urine Protein Urine Glucose (UA) Urine Ketones Urine Blood Urine Nitrate Urine Bilirubin Urine Urobilinogen Ur Leukocyte Esterase Urine RBC (Auto) Urine Microscopic WBC Urine Bacteria Blood Type Antibody Screen BBK History Checked - Imaging and Cardiology CT scan - abdomen Status: Report reviewed by me Assessment & Plan (1) Gastrointestinal hemorrhage Assessment and Plan: Sudden onset brisk red blood per rectum in patient on ASA. R/o sources including diverticulitis, colitis, and mass. Flexible sigmoidoscopy tomorrow AM Status: Acute
[2019-02-25] MEDS: diltiaZEM 180 mg/24 Hours CD Cap PO SCH (16:24)
[2019-02-25 18:36] LABS: HEMOGLOBIN 12.6 g/dL (12.0-16.0); MEAN CELL VOLUME 91.1 fl (81.0-99.0); MEAN CORPUSCULAR HEMOGLOBIN 30.6 pg (27.0-31.0); MEAN CORPUSCULAR HGB CONC 33.6 g/dL (33.0-37.0); RBC 4.12 Mil/uL (3.80-5.20); RED CELL DISTRIBUTION WIDTH 14.1 % (11.5-14.5); WHITE BLOOD COUNT 6.7 K/uL (4.8-10.8)
[2019-02-25] MEDS ORDERED: Chlorhexidine Gluconate 1 APPL/PKT TP ONE (18:41)
--- NOTE | 2019-02-26 01:21 | CP.PCM.PN ---
Subjective - Date & Time of Evaluation Date of Evaluation: 02/25/19 Time of Evaluation: 11:00 - Subjective Subjective: HPI: 78 y/o female with a PMH of Diverticular disease presented to the ED with bright red blood per rectum. As per the pt, she had worsening bloody BMs, with clot formation, over the past 3 days. The pt had a colonoscopy done several years ago, which she reports revealed diverticular disease. PMH: Diabetes, Diverticulitis, HTN, Hyperlipidemia PSH: Appendectomy, Cholecystectomy, , hysterectomy, Colonoscopy. Social history: No history of alcoholism or smoking. Allergies: Ciprofloxacin. Subjective Review of Systems: Reviewed and no additional remarkable complaints except bloody bowel movements with clots. Objective Appears: Non-toxic, No Acute Distress. Head Exam: NORMAL INSPECTION, normocephalic. Eye Exam: Normal eye inspection, EOMI, PERRLA. Respiratory Exam: NORMAL BREATHING PATTERN, breath sounds clear to auscultation. Cardiovascular Exam: +S1, +S2. RRR. GI & Abdominal Exam: Soft, non-tender, non-distended. Neurological Exam: Alert, Awake, Oriented x3. Psychiatric exam: Normal mood, calm and cooperative. Skin Exam: Normal Color, Warm, Dry. Assessment/Impression/Plan: 1.) GI bleed -Suspect lower GI bleed. -CT A/P was unremarkable. -Pt has a history of diverticular disease. -GI consult input appreciated. -For possible colonoscopy/sigmoidoscopy -Monitor Hgb + Hct, evaluate need for PRBCs. -Serial CBCs. -Aspirin and NSAIDS will be held at this time. -Continue current treatment. Objective - Vital Signs/Intake and Output Vital Signs (last 24 hours): Temp Pulse Resp BP Pulse Ox 97.3 F L 65 18 157/61 H 95 02/26/19 00:33 02/26/19 00:33 02/26/19 00:33 02/26/19 00:33 02/26/19 00:33 - Medications Medications: Current Medications Diltiazem HCl (Cardizem Cd) 180 mg PO DAILY [facility] Last Admin: 02/25/19 16:24 Dose: 180 mg Losartan Potassium (Cozaar) 25 mg PO DAILY [facility] Last Admin: 02/25/19 16:23 Dose: 25 mg Pantoprazole Sodium (Protonix Inj) 40 mg IVP Q12 [facility] Last Admin: 04/24/19 21:34 Dose: 40 mg Sertraline HCl (Zoloft) 50 mg PO DAILY [place] Last Admin: 02/25/19 16:23 Dose: 50 mg Sitagliptin Phosphate (Januvia) 100 mg PO DAILY [facility] Last Admin: 02/25/19 16:24 Dose: 100 mg Sodium Phosphate (Fleet Enema) 135 ml [place] ONCE ONE Stop: 02/26/19 06:01 - Labs Labs: 02/25/19 18:15 02/25/19 11:00 PT 10.4 Seconds (9.8-13.1) 02/24/19 21:30 INR 0.9 02/24/19 21:30 APTT 36.2 Seconds (25.6-37.1) 02/24/19 21:30 Assessment and Plan (1) GI bleed Status: Acute (2) Gastrointestinal hemorrhage Status: Acute
--- NOTE | 2019-02-26 01:23 | CP.PCM.HP ---
History of Present Illness - History of Present Illness History of Present Illness: HPI: 78 y/o female with a PMH of Diverticular disease presented to the ED with bright red blood per rectum. As per the pt, she had worsening bloody BMs, with clot formation, over the past 3 days. The pt had a colonoscopy done several years ago, which she reports revealed diverticular disease. PMH: Diabetes, Diverticulitis, HTN, Hyperlipidemia PSH: Appendectomy, Cholecystectomy, , hysterectomy, Colonoscopy. Social history: No history of alcoholism or smoking. Allergies: Ciprofloxacin. Subjective Review of Systems: Reviewed and no additional remarkable complaints except bloody bowel movements with clots. Objective Appears: Non-toxic, No Acute Distress. Head Exam: NORMAL INSPECTION, normocephalic. Eye Exam: Normal eye inspection, EOMI, PERRLA. Respiratory Exam: NORMAL BREATHING PATTERN, breath sounds clear to auscultation. Cardiovascular Exam: +S1, +S2. RRR. GI & Abdominal Exam: Soft, non-tender, non-distended. Neurological Exam: Alert, Awake, Oriented x3. Psychiatric exam: Normal mood, calm and cooperative. Skin Exam: Normal Color, Warm, Dry. Assessment/Impression/Plan: 1.) GI bleed -Suspect lower GI bleed. -CT A/P was unremarkable. -Pt has a history of diverticular disease. -GI consult input appreciated. -For possible colonoscopy/sigmoidoscopy -Monitor Hgb + Hct, evaluate need for PRBCs. -Serial CBCs. -Aspirin and NSAIDS will be held at this time. -Continue current treatment. Present on Admission - Present on Admission Any Indicators Present on Admission: No Past Patient History - Past Medical History & Family History Past Medical History?: Yes - Past Social History Smoking Status: Never Smoked - CARDIAC Hx Hypertension: Yes - NEUROLOGICAL Hx Neurological Disorder: Yes - RENAL Other/Comment: renal cyst - ENDOCRINE/METABOLIC Hx Endocrine Disorders: Yes (DM) - MUSCULOSKELETAL/RHEUMATOLOGICAL Hx Falls: Yes - GASTROINTESTINAL Hx Diverticulitis: Yes - PSYCHIATRIC Hx Substance Use: No - SURGICAL HISTORY Hx Appendectomy: Yes Hx Cholecystectomy: Yes - ANESTHESIA Hx Anesthesia: Yes Hx Anesthesia Reactions: No Meds Allergies/Adverse Reactions: Allergies Allergy/AdvReac Type Severity Reaction Status Date / Time ciprofloxacin [From Cipro] Allergy RASH Verified 02/22/18 16:24 Results - Vital Signs Recent Vital Signs: Last Vital Signs Temp 97.3 F L 02/26/19 00:33 Pulse 65 02/26/19 00:33 Resp 18 02/26/19 00:33 BP 157/61 H 02/26/19 00:33 Pulse Ox 95 02/26/19 00:33 - Labs Result Diagrams: 02/25/19 18:15 02/25/19 11:00 Labs: Laboratory Results - last 24 hr 02/25/19 02/25/19 02/25/19 05:36 10:57 11:00 WBC RBC Hgb Hct MCV MCH MCHC RDW Plt Count Sodium Potassium Chloride Carbon Dioxide Anion Gap BUN Creatinine Est GFR ( Amer) Est GFR (Non-Af Amer) POC Glucose (mg/dL) 101 100 Random Glucose Calcium Iron 53 TIBC 277 % Saturation 19 L Ferritin Vitamin B12 02/25/19 02/25/19 02/25/19 11:00 11:00 11:00 WBC 5.7 RBC 3.81 Hgb 11.6 L Hct 34.5 MCV 90.5 MCH 30.3 MCHC 33.5 RDW 13.6 Plt Count 288 Sodium 139 Potassium 3.9 Chloride 107 Carbon Dioxide 26 Anion Gap 10 BUN 16 Creatinine 0.9 Est GFR ( Amer) > 60 Est GFR (Non-Af Amer) > 60 POC Glucose (mg/dL) Random Glucose 91 Calcium 8.7 Iron TIBC % Saturation Ferritin 16.8 Vitamin B12 720 02/25/19 02/25/19 02/25/19 16:01 18:15 21:08 WBC 6.7 RBC 4.12 Hgb 12.6 Hct 37.5 MCV 91.1 MCH 30.6 MCHC 33.6 RDW 14.1 Plt Count 305 Sodium Potassium Chloride Carbon Dioxide Anion Gap BUN Creatinine Est GFR ( Amer) Est GFR (Non-Af Amer) POC Glucose (mg/dL) 93 92 Random Glucose Calcium Iron TIBC % Saturation Ferritin Vitamin B12 Assessment & Plan (1) GI bleed Status: Acute (2) Gastrointestinal hemorrhage Status: Acute
[2019-02-26 06:12] LABS: HEMOGLOBIN 11.5 g/dL (12.0-16.0); MEAN CELL VOLUME 90.7 fl (81.0-99.0); MEAN CORPUSCULAR HGB CONC 34.2 g/dL (33.0-37.0); RBC 3.71 Mil/uL (3.80-5.20); RED CELL DISTRIBUTION WIDTH 13.7 % (11.5-14.5); WHITE BLOOD COUNT 5.7 K/uL (4.8-10.8)
[2019-02-26 06:20] LABS: ALB/GLOB RATIO 1.2 (1.0-2.1); ALBUMIN 3.7 g/dL (3.5-5.0); ALT/SGPT 24 U/L (9-52); AST/SGOT 25 U/L (14-36); BLOOD UREA NITROGEN 16 mg/dl (7-17); GFR NON-AFRICAN AMERICAN 54
[2019-02-26] MEDS ORDERED: Lactated Ringer's 500 ML IV ONE (08:04)
[2019-02-26] MEDS: diltiaZEM 180 mg/24 Hours CD Cap PO SCH (09:12)
[2019-02-26 09:31] VITALS: RESP 18
--- NOTE | 2019-02-26 11:05 | CARD ---
APPROVED REPORT Date of service: 02/25/2019 EKG Measurement Heart [id number] <Conclusion> Normal sinus rhythm Nonspecific T wave abnormality Abnormal ECG
[2019-02-26] MEDS ORDERED: Insulin Lispro (humaLOG) 100 Units/ml Inj SC SCH (12:45)
[2019-02-26 13:35] VITALS: BP 135/65; PULSE 68; TEMP 98.2; O2SAT 92
--- NOTE | 2019-02-26 13:36 | CP.PCM.PCO ---
Assessment/Plan - Assessment and Plan (Free Text) Assessment: Patient seen and examined this morning s/p sigmoidoscopy Doing well, denies chest pain shortness of breath nausea or vomiting. Wll dc to home today-hold aspirin for [address] Marcus will follow up with him in the office. May be discharged after she tolerates her lunch. DIscussed with Dr Lopez.
== END 2019-02-26 16:00 | disposition home or self-care (01) | DRG 392 ==
LOC: H.ER 20:02 → H.ERHOLD 02-25 00:09 → H.TEL 02-25 02:54
PROVIDERS: ADMIT Family Medicine; ATTEND Family Medicine
PROC: 0DJD8ZZ Inspection of Lower Intestinal Tract, Via Natural or Artificial Opening Endoscopic (ICD-10-PCS; principal; 2019-02-26 08:30)
DX: K57.30 Diverticulosis of large intestine without perforation or abscess without bleeding (principal); K62.5 Hemorrhage of anus and rectum; E11.9 Type 2 diabetes mellitus without complications; E78.5 Hyperlipidemia, unspecified; I10 Essential (primary) hypertension; D64.9 Anemia, unspecified; Z79.82 Long term (current) use of aspirin; Z90.49 Acquired absence of other specified parts of digestive tract; Z90.710 Acquired absence of both cervix and uterus; K52.9 Noninfective gastroenteritis and colitis, unspecified